=== PATIENT | male | born 1945 | race Caucasian/White ===

== ENCOUNTER 2024-03-14 11:07 | Day surgery (SDC) | payer MEDICARE ==
[~2024-03-14] VITALS: Ht 180.3 cm; Wt 87.8 kg
[2024-03-14] VITALS (14 sets, daily range): BP systolic 97–149; BP diastolic 57–81; PULSE 62–82; RESP 10–16; TEMP 98.1; O2SAT 92–99
[2024-03-14] MEDS: ceFAZolin 2gm in dextrose, iso 50 ML IV ONE (05:30)
[~2024-03-14 11:07] MED LIST: ASPI81TA52 PO; ATOR20TA66 PO; DOCU-148 PO; FAMO-129 PO; FEBU80TA6 PO; FENO160T PO; FURO20TA4 PO; GLUCOSAMINE; IRON; LISI10TA27 PO; SOLI10TA2 PO; TESTOSTERONE; VITAMIN C
[2024-03-14] MEDS ORDERED: BUPIVAcaine 2.5mg/ml inj 50ml vial (contains preservative) ONE (11:58)
[2024-03-14] MEDS: famotidine 20mg tablet PO ONE (12:28)
[2024-03-14] MEDS: ringers solution, lacted 1,000 ML IV SCH (12:29)
[2024-03-14] MEDS ORDERED: fentaNYL/PF 50MCG/1 ML 2ML syringe ONE (13:25)
[2024-03-14] MEDS ORDERED: MIDAZolam 1 MG/ML 5ML VIAL ONE (13:35)
[2024-03-14] MEDS ORDERED: LIDOcaine 2% (20mg/ml) 5ml vial ONE (13:36)
[2024-03-14] MEDS ORDERED: BUPIVAcaine/PF 7.5mg/ml (0.75%) 10ml vial ONE (13:36)
[2024-03-14] MEDS ORDERED: vancomycin 1,000mg inj ONE (13:39)
[2024-03-14] MEDS ORDERED: enalaprilat dihydrate 2.5mg/2ml vial IV PRN (14:10)
[2024-03-14] MEDS ORDERED: meperidine/PF 25mg/ml syringe IV PRN ×3 (14:10)
[2024-03-14] MEDS ORDERED: labetalol 20mg/4ml (5mg/ml) syringe IV PRN (14:10)
[2024-03-14] MEDS ORDERED: ondansetron/PF 4mg/2ml inj IV PRN (14:10)
[2024-03-14] MEDS ORDERED: ringers solution, lacted 1,000 ML IV SCH (14:10)
[2024-03-14] MEDS ORDERED: proCHLORperazine 10 MG/2 ml inj IV PRN (14:10)
== END 2024-03-14 16:08 | disposition home or self-care (01) ==
LOC: PAS 11:07
PROVIDERS: ATTEND Orthopaedic Surgery Orthopaedic Trauma
DX: M86.8X7 Other osteomyelitis, ankle and foot (principal); G89.18 Other acute postprocedural pain; I12.9 Hypertensive chronic kidney disease with stage 1 through stage 4 chronic kidney disease, or unspecified chronic kidney disease; N18.2 Chronic kidney disease, stage 2 (mild); I25.119 Atherosclerotic heart disease of native coronary artery with unspecified angina pectoris; I48.91 Unspecified atrial fibrillation; E78.5 Hyperlipidemia, unspecified; I25.2 Old myocardial infarction; M19.90 Unspecified osteoarthritis, unspecified site; Z87.891 Personal history of nicotine dependence; Z85.46 Personal history of malignant neoplasm of prostate; Z79.82 Long term (current) use of aspirin; Z79.890 Hormone replacement therapy; Z79.899 Other long term (current) drug therapy; Z90.79 Acquired absence of other genital organ(s); Z90.89 Acquired absence of other organs; Z95.4 Presence of other heart-valve replacement; Z96.652 Presence of left artificial knee joint; Z98.890 Other specified postprocedural states; Z88.5 Allergy status to narcotic agent; Z88.2 Allergy status to sulfonamides
CPT/HCPCS: 28820; 36415; 64450; 82948; 85730; A4618; A6222; A6402; A7000; J0690; J2003; J2250; J3010; J3370; J3490; J7030; J7120; Z7506; Z7512; Z7610; A6449